=== PATIENT | female | born 2000 | race Caucasian/White ===

== ENCOUNTER 2020-06-21 11:45 | Emergency (ER) | payer OTHER ==
[~2020-06-21] VITALS: Ht 162.6 cm; Wt 72.6 kg
[~2020-06-21 11:45] MED LIST: IRON325; LEXAPRO 10 MG T10 M2; NATURE-THROI48.75 MG
[2020-06-21] MEDS ORDERED: NAPROSYN500 MG PO ×2 (12:16→12:17)
[2020-06-21 12:38] VITALS: BP 136/73
== END 2020-06-21 12:38 | disposition home or self-care (01) ==
LOC: M.ERS 11:45
DX: M79.18 Myalgia, other site (principal); E03.9 Hypothyroidism, unspecified; Z88.2 Allergy status to sulfonamides